=== PATIENT | female | born 1960 | race Two or more races ===

== ENCOUNTER 2016-08-18 23:50 | Emergency (ER) | payer OTHER ==
--- NOTE | 2016-08-29 21:15 | ER ---
ADMIT: 08/18/2016 RM/LOC: ER [facility] MR#: [id number] [id number] [facility] [id number] [place], [place] [id number] JORGE GALEANA [address] [place] [address] Emergency Room Report SEX: F AGE: 56 : 1960 DATE: 08/18/2016 ADDENDUM: CHIEF COMPLAINT: Laceration. HISTORY OF PRESENT ILLNESS: This is a 56-year-old female, who works at [employer]. She made a small laceration on her left arm, suture repair was done. Please see T-sheet for that information. Placed on Keflex and Bactrim due to contamination, possibly in the wound. We will have her followup with her PCP in 10 days to have the stitches removed. KHURRAM Berrios / Deven Chávez MD / marl JOB #: [id number] CC: Deven Chávez MD, Attending Physician Yo Kinney MD, Family Physician
== END 2016-08-19 00:58 | disposition home or self-care (01) ==
LOC: ER 23:50
PROC: 0HQCXZZ Repair Left Upper Arm Skin, External Approach (ICD-10-PCS; principal; 2016-08-18)
DX: S41.112A Laceration without foreign body of left upper arm, initial encounter (principal); F17.210 Nicotine dependence, cigarettes, uncomplicated; Z23 Encounter for immunization; Z79.82 Long term (current) use of aspirin; Z79.899 Other long term (current) drug therapy; W45.8XXA Other foreign body or object entering through skin, initial encounter

== ENCOUNTER 2016-09-11 19:03 | Emergency (ER) | payer BC ==
--- NOTE | 2016-09-16 13:49 | ER ---
ADMIT: 09/11/2016 RM/LOC: ER [facility] MR#: [id number] [facility] [address] [place] [id number] JORGE GALEANABLANQUITA [address] [facility] [address] [place] [address] Emergency Room Report SEX: F AGE: 56 : 1960 DATE: 09/11/2016 HISTORY OF PRESENT ILLNESS: The patient is a 56-year-old female with a past medical history of diabetes, hypertension, arthritis, came to the ER with chief complaint of right lower back, superior gluteal area pain. 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 While the patient turned around, she noticed a sharp pain which continues in the ER. The pain is sharp and moderate to severe in severity and increases with palpation of the right superior gluteal area, lower low back. The patient states she has similar pain in the back. The patient denies any numbness, tingling, weakness, saddle anesthesia, chest pain, shortness of breath, headache, urinary retention or incontinence. PHYSICAL EXAMINATION: VITAL SIGNS: The patient has stable vitals. The patient was in moderate distress, tried to be still. HEAD AND NECK: Normal. CHEST: Clear bilaterally with normal breath sounds. HEART: Normal S1, S2 without any murmurs or S3, S4 gallops. ABDOMEN: Soft. NEUROLOGIC: Motor and sensory and the rest of the neural exam was normal. EMERGENCY DEPARTMENT COURSE: In the right posterior superior gluteal area and right paraspinal lower back very close to the SI joint, the patient had two tender points. The tender points each were injected with Marcaine 0.5% and lidocaine 2% with epinephrine, 50% of each, together 2.5 mL. The patient also received Percocet p.o. too. The patient was rechecked, the pain was resolved. The patient was in no pain or distress. Urine was negative for any abnormalities. The patient was stable and was ambulating without difficulty and could have normal gait and normal motor and sensory. The patient was discharged to home with return precautions. Follow up with the primary doctor as needed. FINAL DIAGNOSES: 1. Myofascial pain syndrome. 2. Low back pain. 3. Trigger point injection. Lucien Louie MD/ daja JOB #: [id number] CC: Johnny Mullins MD, Attending Physician Mike Kinney MD, Family Physician
== END 2016-09-11 22:12 | disposition home or self-care (01) ==
LOC: ER 19:03
PROC: 3E023BZ Introduction of Anesthetic Agent into Muscle, Percutaneous Approach (ICD-10-PCS; principal; 2016-09-11)
DX: M79.1 Myalgia (principal); I10 Essential (primary) hypertension; F17.210 Nicotine dependence, cigarettes, uncomplicated